=== PATIENT | male | born 1960 | race Caucasian/White ===

== ENCOUNTER 2021-07-10 13:34 | Inpatient (IN) | payer OTHER, SELFPAY ==
[2021-07-10 14:09] VITALS: BP 160/97; PULSE 87; RESP 16; TEMP 36.8; O2SAT 98; BMI 24.8
--- NOTE | 2021-07-10 14:34 | MHC.CARE ---
CARE team aware of pt. He will be evaluated by this proposal manager writer when medically cleared.
[2021-07-10 14:37] VITALS: RESP 16
[2021-07-10 15:01] LABS: COVID-19 Test Negative (Negative); IDNOW Serial# 55D5AD1C
[2021-07-10 15:19] LABS: Basophils Absolute Auto 0.1 X10*3/uL (0.0-0.2); Basophils Percent Auto 0.8 % (0-2); MANUAL DIFF FLAG SCAN; Mean Corpuscular Volume 84.4 fL (80-98); PLT CLUMP 1; SCAN SMEAR FLAG 1
[2021-07-10 15:21] LABS: Eosinophils Absolute Auto 0.1 X10*3/uL (0.0-0.4); Eosinophils Percent Auto 1.5 % (0-4); Hematocrit 39.6 % (42-52); Hemoglobin 14.2 g/dl (14.0-18.0); Imm Gran Abs Auto 0.01 X10*3/uL (0.00-0.03); Imm Gran Pct Auto 0.2 % (0.0-0.4); Lymphocytes Percent Auto 16.1 % (20-40); Mean Corpuscular HGB Conc 35.9 g/dl (31.0-36.0); Mean Corpuscular Hemoglobin 30.3 pg (27.0-33.0); Mean Platelet Volume 10.5 fL (9.4-12.4); Monocytes Absolute Auto 0.5 X10*3/uL (0.1-1.2); Monocytes Percent Auto 7.3 % (2-11); Neutrophils Absolute Auto 4.8 X10*3/uL (2.0-8.3); Neutrophils Percent Auto 74.1 % (45-73); Red Blood Count 4.69 X10*6/uL (4.60-5.80); Red Cell Distribution Width 12.4 % (11.0-16.0); White Blood Count 6.5 X10*3/uL (4.8-10.8)
[2021-07-10 15:25] LABS: INTERNATIONAL NORM RATIO 2.4 (0.9-1.1); Prothrombin Time 27.5 SEC (9.9-13.0)
[2021-07-10 15:27] LABS: Partial Thromboplastin Time 44.4 SEC (24.1-38.0)
[2021-07-10 15:37] LABS: Platelet Count 113 X10*3/uL (160-400); SLIDE REVIEW VERIFIED
[2021-07-10 15:41] LABS: Alanine Aminotransferase 15 U/L (0-40); Albumin Level 4.4 g/dL (3.5-5.0); Alkaline Phosphatase 62 U/L (39-117); Anion Gap 12 (12-20); Aspartate Amino Transferase 20 U/L (5-37); Bilirubin Direct 0.2 mg/dL (0.0-0.5); Bilirubin Total 0.7 mg/dL (0.0-1.0); Blood Urea Nitrogen 19 mg/dL (9-16); Calcium 9.8 mg/dL (8.4-10.2); Carbon Dioxide 27 mmol/L (22-29); Chloride 106 mmol/L (96-108); Creatinine Clr Calc Pharmacy 94.1; Estimated Glomerular Filt Rate > 60; Glucose Random 168 mg/dL (60-115); Potassium 4.4 mmol/L (3.3-5.1); Sodium 141 mmol/L (135-145); Total Protein 6.8 g/dL (6.5-8.0)
--- NOTE | 2021-07-10 16:08 | ECG_ITS ---
Test Reason : MED CLEARANCE Blood Pressure : / mmHG Vent. Rate : 077 BPM Atrial Rate : 077 BPM P-R Int : 168 ms QRS Dur : 096 ms QT Int : 426 ms P-R-T Axes : 049 001 064 degrees QTc Int : 482 ms Normal sinus rhythm Prolonged QT Nonspecific T wave abnormality Abnormal ECG No previous ECGs available Referred By: Jorge Arroyo Electronically Signed By:MURTAZA CRUZ
--- NOTE | 2021-07-10 16:34 | ED.PSYCH ---
HPI - Psych General Chief Complaint: Psychiatric Symptoms Stated Complaint: CRISIS Time Seen by Provider: 07/10/21 14:43 Source: patient Mode of arrival: ambulatory Limitations: no limitations History of Present Illness HPI Narrative: Patient presents to ED for suicide attempt. Patient states he has been under lot of stress lately. Patient has been depressed. Patient states within 3 months. He lost his and father failure. He also had to sell his house because he could not pay the mortgage. Patient states this morning he did not feel himself. Patient states this morning he felt like something was controlling him and he just got up with his clothes on, wrote a willl, and then went to the garage and put a noose around his neck. Patient states then the light came up in the garage and he snapped out of it and he removed the noose from his neck went over to his friend's house. Patient states noose was loose around his neck and was not tight. Patient states he was not hanging in the air. Patient states he stepped on a chair with the news on his neck but never jump rfrom the chair to hang himself. Patient denies any neck pain. Related Data Home Medications Medication Instructions Recorded Confirmed gabapentin 300 mg capsule 300 mg PO TID 07/10/21 07/10/21 metformin 500 mg tablet 500 mg PO BID 07/10/21 07/10/21 metoprolol succinate 50 mg 50 mg PO BID 07/10/21 07/10/21 tablet,extended release 24 hr sertraline 100 mg tablet 100 mg PO BID 07/10/21 07/10/21 warfarin 5 mg tablet 5 tab PO DAILY 07/10/21 07/10/21 Allergies Allergy/AdvReac Type Severity Reaction Status Date / Time No Known Allergies Allergy Verified 07/10/21 14:21 Review of Systems Review of Systems: Yes all other systems are reviewed and are negative Constitutional: Constitutional: Reports as per HPI and Reports no additional constitutional complaints Eyes: Eyes: Reports as per HPI and Reports no additional eye complaints ENT: Reports system reviewed and no additional complaints, except as documented and Reports as per HPI Cardiovascular: Cardiovascular: Reports as per HPI and Reports no additional cardiovascular complaints Respiratory: Respiratory: Reports as per HPI and Reports no additional respiratory complaints Gastrointestinal: Gastrointestinal: Reports as per HPI and Reports no additional gastrointestinal complaints Genitourinary: Genitourinary: Reports no additional male genitourinary complaints and Reports as per HPI Musculoskeletal: Musculoskeletal: Reports no additional musculoskeletal complaints and Reports as per HPI Neurologic: Reports system reviewed and no additional complaints, except as documented and Reports as per HPI Psychiatric: Psychiatric: Reports no additional psychiatric complaints, Reports as per HPI, Reports depression and Reports suicidal ideation [facility] Social History Social History Alcohol intake: never Patient Tobacco Use Status: Tobacco use Unknown Use of substances other than those prescribed or required for medical reasons: No Advance Directives: Yes Advance Directives Information Provided: Yes Advance Directives on File: No Guardian: No Physical Exam Vital Signs: Vital Signs: Last Vital Signs Temp 98.3 F 07/10/21 14:09 Pulse 87 07/10/21 14:09 Resp 16 07/10/21 14:37 BP 160/97 H 07/10/21 14:09 Pulse Ox 98 07/10/21 14:09 Body Mass Index 24.8 Const: General: cooperative, healthy appearing, comfortable, no acute distress, well developed, alert, awake and Physically active Orientation/consciousness: patient oriented x3 HENMT: Head: Yes normal to inspection, Yes No palpable skull fracture present, Yes normocephalic and Yes atraumatic Eyes: General: appearance normal, both eyes and all related structures Neck: Other: Negative for any ecchymosis, redness, or Rope chapman around neck. Neck: Yes normal visual inspection, Yes full ROM, Yes no lymphadenopathy, Yes no meningeal signs, Yes trachea midline, Yes supple and No tender Chest: Chest palpation & inspection: normal inspection of the chest and normal palpation of entire chest wall Resp: Effort & Inspection: normal respiratory effort and able to speak in complete sentences Auscultation: clear to auscultation bilaterally Cardio: Jugular venous distension: no JVD Heart sounds: S1 normal heart sound present and S2 normal heart sound present GI: Inspection: Yes normal to inspection and No abdominal wall ecchymosis Palpation (GI): Soft to palpation, not firm, nontender, no guarding and not rigid : General: No CVA tenderness and Yes no CVA tenderness Back/Spine/Pelvis: Back: no CVA tenderness, No CVA tenderness and No back tenderness Skin: General skin exam: no rashes or lesions noted and elasticity normal Neuro: General: patient oriented x3, no meningeal signs and CN's II-XI intact bilaterally Cranial nerves: Yes CN's II-XII intact bilaterally Extrem: General: Yes normal to inspection and Yes full ROM Psych: Appearance: grossly normal, well kempt and not disheveled Thought content: Suicidality present and Depressive thoughts present Course Course Course Narrative: Patient will have medical evaluation and then be evaluated by behavior Health team at work. Reevaluation(s) Reevaluation #1: Patient seen by care team consulted Eli mcgovern recommends patient be admitted for psych and patient. Labs are normal and at baseline. Time: 18:13 MDM - Psych MDM Narrative Medical decision making narrative: Depression Lab Data Result diagrams: 07/10/21 15:12 07/10/21 15:12 Labs: Lab Results 07/10/21 07/10/21 07/10/21 Range/Units 14:37 15:12 15:12 WBC 6.5 (4.8-10.8) X10*3/uL RBC 4.69 (4.60-5.80) X10*6/uL Hgb 14.2 (14.0-18.0) g/dl Hct 39.6 L (42-52) % MCV 84.4 (80-98) fL MCH 30.3 (27.0-33.0) pg MCHC 35.9 (31.0-36.0) g/dl RDW 12.4 (11.0-16.0) % Plt Count 113 L (160-400) X10*3/uL MPV 10.5 (9.4-12.4) fL Immature Gran % (Auto) 0.2 (0.0-0.4) % Neut % (Auto) 74.1 H (45-73) % Lymph % (Auto) 16.1 L (20-40) % [place] % (Auto) 7.3 (2-11) % Eos % (Auto) 1.5 (0-4) % Baso % (Auto) 0.8 (0-2) % Lymph # (Auto) 1.0 L (1.2-4.9) X10*3/uL [place] # (Auto) 0.5 (0.1-1.2) X10*3/uL Eos # (Auto) 0.1 (0.0-0.4) X10*3/uL Baso # (Auto) 0.1 (0.0-0.2) X10*3/uL Abs Immat Gran (auto) 0.01 (0.00-0.03) X10*3/uL Absolute Neuts (auto) 4.8 (2.0-8.3) X10*3/uL Absolute Nucleated RBC 0.000 (0.0-0.012) X10*3/uL Nucleated RBC % (auto) 0.0 (0.0-0.2) /100WBC Smear Tech's Comments VERIFIED PT 27.5 H (9.9-13.0) SEC INR 2.4 H (0.9-1.1) APTT 44.4 H (24.1-38.0) SEC Sodium (135-145) mmol/L Potassium (3.3-5.1) mmol/L Chloride (96-108) mmol/L Carbon Dioxide (22-29) mmol/L Anion Gap (12-20) BUN (9-16) mg/dL Creatinine (0.5-1.4) mg/dL Estim Creat Clear Calc Estimated GFR Random Glucose (60-115) mg/dL Calcium (8.4-10.2) mg/dL Total Bilirubin (0.0-1.0) mg/dL Direct Bilirubin (0.0-0.5) mg/dL AST (5-37) U/L ALT (0-40) U/L Alkaline Phosphatase (39-117) U/L Total Protein (6.5-8.0) g/dL Albumin (3.5-5.0) g/dL COVID-19 (SAMUEL) Negative (Negative) COVID-19 Clin Com See Note 07/10/21 Range/Units 15:12 WBC (4.8-10.8) X10*3/uL RBC (4.60-5.80) X10*6/uL Hgb (14.0-18.0) g/dl Hct (42-52) % MCV (80-98) fL MCH (27.0-33.0) pg MCHC (31.0-36.0) g/dl RDW (11.0-16.0) % Plt Count (160-400) X10*3/uL MPV (9.4-12.4) fL Immature Gran % (Auto) (0.0-0.4) % Neut % (Auto) (45-73) % Lymph % (Auto) (20-40) % [place] % (Auto) (2-11) % Eos % (Auto) (0-4) % Baso % (Auto) (0-2) % Lymph # (Auto) (1.2-4.9) X10*3/uL [place] # (Auto) (0.1-1.2) X10*3/uL Eos # (Auto) (0.0-0.4) X10*3/uL Baso # (Auto) (0.0-0.2) X10*3/uL Abs Immat Gran (auto) (0.00-0.03) X10*3/uL Absolute Neuts (auto) (2.0-8.3) X10*3/uL Absolute Nucleated RBC (0.0-0.012) X10*3/uL Nucleated RBC % (auto) (0.0-0.2) /100WBC Smear Tech's Comments PT (9.9-13.0) SEC INR (0.9-1.1) APTT (24.1-38.0) SEC Sodium 141 (135-145) mmol/L Potassium 4.4 (3.3-5.1) mmol/L Chloride 106 (96-108) mmol/L Carbon Dioxide 27 (22-29) mmol/L Anion Gap 12 (12-20) BUN 19 H (9-16) mg/dL Creatinine 0.90 (0.5-1.4) mg/dL Estim Creat Clear Calc 94.1 Estimated GFR > 60 Random Glucose 168 H (60-115) mg/dL Calcium 9.8 (8.4-10.2) mg/dL Total Bilirubin 0.7 (0.0-1.0) mg/dL Direct Bilirubin 0.2 (0.0-0.5) mg/dL AST 20 (5-37) U/L ALT 15 (0-40) U/L Alkaline Phosphatase 62 (39-117) U/L Total Protein 6.8 (6.5-8.0) g/dL Albumin 4.4 (3.5-5.0) g/dL COVID-19 (SAMUEL) (Negative) COVID-19 Clin Com Discharge Plan Discharge Clinical Impression: Depression Prescriptions: No Action metformin 500 mg tablet 500 mg PO BID RF: 0 metoprolol succinate 50 mg Tablet Extended Release 24 Hr 50 mg PO BID RF: 0 sertraline 100 mg tablet 100 mg PO BID RF: 0 warfarin 5 mg tablet 5 tab PO DAILY RF: 0 gabapentin 300 mg capsule 300 mg PO TID RF: 0
--- NOTE | 2021-07-10 18:39 | MHC.CARE ---
Evaluation complete. Plan is for inpt psych placement. Will be presented to M5 for possible admission.
[2021-07-10] MEDS: oxyCODONE HCl Immed Release 5 MG TABLET PO (18:44)
[2021-07-10] MEDS: Warfarin Sodium 7.5 MG TABLET PO (20:36)
[2021-07-10 20:40] VITALS: BP 139/86; PULSE 69
[2021-07-10] MEDS: Gabapentin 300 MG CAPSULE PO ×2 (20:40→20:58)
[2021-07-10] MEDS: Metoprolol Succinate ER 50 MG TAB.ER.24H PO (20:40)
[2021-07-10] MEDS: Sertraline HCL 100 MG TABLET PO (20:40)
[2021-07-10] MEDS: metFORMIN HCl 500 MG TABLET PO (20:40)
[2021-07-10 21:14] LABS: Amphetamine Screen Urine Not Detected (Not Detect); Barbiturates, Urine Not Detected (Not Detect); Benzodiazepines Screen Urine Not Detected (Not Detect); Cannabinoid Screen Urine POSITIVE (Not Detect); Cocaine Screen Urine Not Detected (Not Detect); Fentanyl, urine Not Detected (Not Detect); Opiate Screen Urine Not Detected (Not Detect); Phencyclidine Screen Urine Not Detected (Not Detect)
[2021-07-10] MEDS: Nicotine Polacrilex 2 MG GUM BUCCAL (21:35)
[2021-07-11 00:23] VITALS: BP 146/77; PULSE 58; RESP 18; TEMP 36.7; O2SAT 96
[2021-07-11] MEDS: Melatonin 3 MG TABLET 6 MG PO (00:24)
[2021-07-11 01:10] VITALS: BP 135/86; PULSE 72; RESP 18; TEMP 24.9; O2SAT 98
[2021-07-11 02:03] VITALS: BMI 23.6
[2021-07-11] MEDS: hydrOXYzine HCL 25 MG TABLET PO (03:03)
--- NOTE | 2021-07-11 04:36 | PC.ADMIT ---
Patient is alert and oriented x 4. He presents with flat affect and labile mood. Patient is admitted on a Conditional Voluntary status to M5 at 1:10am from [facility]. Patient arrives ambulatory with CARE team staff member. Patient is irritable upon arrival stating They gave me sleeping pills, than dragged me out of my warm bed and you want to put me in a dirty bed! [patient's arrival to unit was un-expected and assigned room dirty] It took sometime for patient to de-escalate before coming back to staff, apologizing, and agreeing to participate in admission process. Patient has no previous history of suicide attempts, psychiatric admissions, or providers. Patient was brought to [facility] following Suicide Attempt via hanging. Patient reports he woke up this morning 07/10/21 with no premeditation, wrote a will and left it on the kitchen counter, kissed the dog, and went into the garage. The patient describes his actions as mechanical. The patient made a noose, climbed up on a ladder with it tied around his neck. Patient reports the garage was dark during his initial actions and then the sun came through the window and he realized what he was about to do. Patient reports he removed the noose and went back into the house and had a cup of coffee and then went to a friend's house and told his friend what he had done. His friend brought him to the ED. Patient now describes this event as a cry for help. He states, I could have slipped. Patient reports several preceding factors: Isolating to self in home, the of his of 22 years three months ago, taking care of his bed bound s/p stroke for past five years, sleeping poorly, not making time for himself to engage in activities he enjoys, the of his Father-Like figure recently, worsening medical conditions including bilateral foot neuropathy and pain; patient taking unknown dose of Oxycodone recently from a friend for pain, bilateral foot edema - worsening with meals, significant weight loss, unknown skin condition with draining wounds to right lower leg after trauma to right thigh, recent increase of Prozac, and impending sale of his home. Patient reports he is scared to eat because every time I do, my feet blow up like balloons. Patient also reports he was supposed to sign the closing sale papers for his home today. Patient reports a friend recently told him they would take care of his dog if anything every happened. Patient states, I guess all these things together just made me think. I think it all has something to do with what I did. Patient does not have an outpatient therapist or psychiatrist at this time. Patient reports he is a very private person. Patient reports he would also like to establish a new PCP as he feels his current provider does not listen to him. Patient states several times throughout admission process he feels provider don't listen to him or care about him. He states, they just want to push you through. Patient is active and engaged throughout admission process, but irritable at times. Patient has been smoking about a pack a day for last year and requests a nicotine patch while here.
[2021-07-11 06:00] VITALS: BP 109/79; PULSE 80; RESP 18; TEMP 36.3; O2SAT 98
[2021-07-11 07:16] LABS: Glucose, Whole Blood 163 mg/dL (60-115)
[2021-07-11] MEDS: Gabapentin 300 MG CAPSULE PO (08:42)
[2021-07-11] MEDS: metFORMIN HCl 500 MG TABLET PO ×2 (08:43→21:11)
[2021-07-11] MEDS: Sertraline HCL 100 MG TABLET PO (08:43)
[2021-07-11 09:00] VITALS: BP 118/85; PULSE 76
[2021-07-11] MEDS: Metoprolol Succinate ER 50 MG TAB.ER.24H PO ×2 (09:00→21:11)
[2021-07-11 09:08] LABS: INTERNATIONAL NORM RATIO 2.6 (0.9-1.1); Prothrombin Time 30.2 SEC (9.9-13.0)
--- NOTE | 2021-07-11 10:34 | PC.NURSE ---
Pt signed a 3day notice 07/11/21, up on Saturday07/14/21
--- NOTE | 2021-07-11 15:50 | HO.PSYADMNOT ---
HPI Chief Complaint: Depression Sources of Information: patient interviewed, chart reviewed and crisis/core team assessment reviewed HPI Subjective Notes: [place] Warning and 3 Day Narrative: Mr. Banda is a 61 year-old male with hx of MDD who was brought to [facility] by friend after pt disclosed that earlier in the day he he had planned to hang himself in the garage. Per pt, he obtained a rope and set the ladder in his garage but later decided not to go through with plan and instead contact his long time friend. In the ED, his utox is positive for cannabinoids. This is his first inpatient psychiatric admission. On the unit, Mr. Banda signed a CV and subsequently a 3 day notice. Mr. Banda reports multiple stressors that are triggering his depression including of of 22 years 3 month ago, financial concerns as pt reports main source of income came from (pt states he did not inherent any intermediate or pension from but while she was alive she had stable source of income- unclear where this money came from). Pt reports he is not sure he will be able to afford mortgage nor health insurance. 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 Pt also reports that was very sick and required substantial assistance from him and visiting nurses. Pt reports he has been holding significant stress, depressed mood for several years but able to mask it to be able to care for his . Pt endorses feeling hopeless, tearful at times, angry about his current situation, feeling lonely, not heard by others. On the unit he continues to endorse passive suicidal ideation but denies any plan or intent. Pt reports fair sleep. He denies hx of VH/AH. He denies hx of hypomania or vicki. Pt denies hx of suicide attempts although he reports long history of depression. His PCP has been prescribing sertraline for more than 10 years ago. Most recently sertraline was increased to 200mg po daily, which pt reports is minimally helpful. Pt also reports significan chronic pain- neuropathic pain, minimally relief by gabapentin. Pt reports taking some pills from friend. He is not sure what they were. Pt educated on risks of taking other ppl medication and assuming they are opioid meds, potential for dependence if not closely monitor by health manager career. Past Psychiatric History: Inpatient: none prior OP: none Past medication trials: sertraline Past suicide attempts: only one prior to coming to unit, when pt set up ladder, cord to hang himself. 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 Neuropathic pain. DM, hyperlipedimia. EKG- Qtc slightly prolonged at 482. [facility] Family History: none Social History: Pt , for 22 years. 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 No stable source of income. Substance History: pt denies use/abuse of opioid, cocaine or alcohol but reports frequent use of cannabinoids. Trauma History: recent of Diagnostics Vital Signs (24Hr): Vital Signs - 24 hr 07/10/21 20:40 07/11/21 00:23 07/11/21 01:10 Temperature 98.1 F 76.8 F L Pulse Rate 69 58 72 Respiratory Rate 18 18 Blood Pressure 139/86 146/77 H 135/86 Pulse Oximetry 96 98 07/11/21 06:00 07/11/21 09:00 Temperature 97.4 F Pulse Rate 80 76 Respiratory Rate 18 Blood Pressure 109/79 118/85 Pulse Oximetry 98 Body Mass Index 23.6 Labs Results: 07/10/21 15:12 07/10/21 15:12 Labs: Laboratory Results - last 48 hr 07/10/21 07/10/21 07/10/21 14:37 15:12 15:12 WBC 6.5 RBC 4.69 Hgb 14.2 Hct 39.6 L MCV 84.4 MCH 30.3 MCHC 35.9 RDW 12.4 Plt Count 113 L MPV 10.5 Immature Gran % (Auto) 0.2 Neut % (Auto) 74.1 H Lymph % (Auto) 16.1 L [place] % (Auto) 7.3 Eos % (Auto) 1.5 Baso % (Auto) 0.8 Lymph # (Auto) 1.0 L [place] # (Auto) 0.5 Eos # (Auto) 0.1 Baso # (Auto) 0.1 Abs Immat Gran (auto) 0.01 Absolute Neuts (auto) 4.8 Absolute Nucleated RBC 0.000 Nucleated RBC % (auto) 0.0 Smear Tech's Comments VERIFIED PT 27.5 H INR 2.4 H APTT 44.4 H Sodium Potassium Chloride Carbon Dioxide Anion Gap BUN Creatinine Estim Creat Clear Calc Estimated GFR POC Glucose Random Glucose Calcium Total Bilirubin Direct Bilirubin AST ALT Alkaline Phosphatase Total Protein Albumin Urine Opiates Screen Urine Fentanyl Screen Ur Barbiturates Screen Ur Phencyclidine Scrn Ur Amphetamines Screen U Benzodiazepines Scrn Urine Cocaine Screen U Marijuana (THC) Screen COVID-19 (SAMUEL) Negative COVID-19 Clin Com See Note 07/10/21 07/10/21 07/11/21 15:12 20:52 07:12 WBC RBC Hgb Hct MCV MCH MCHC RDW Plt Count MPV Immature Gran % (Auto) Neut % (Auto) Lymph % (Auto) [place] % (Auto) Eos % (Auto) Baso % (Auto) Lymph # (Auto) [place] # (Auto) Eos # (Auto) Baso # (Auto) Abs Immat Gran (auto) Absolute Neuts (auto) Absolute Nucleated RBC Nucleated RBC % (auto) Smear Tech's Comments PT INR APTT Sodium 141 Potassium 4.4 Chloride 106 Carbon Dioxide 27 Anion Gap 12 BUN 19 H Creatinine 0.90 Estim Creat Clear Calc 94.1 Estimated GFR > 60 POC Glucose 163 H Random Glucose 168 H Calcium 9.8 Total Bilirubin 0.7 Direct Bilirubin 0.2 AST 20 ALT 15 Alkaline Phosphatase 62 Total Protein 6.8 Albumin 4.4 Urine Opiates Screen Not Detected Urine Fentanyl Screen Not Detected Ur Barbiturates Screen Not Detected Ur Phencyclidine Scrn Not Detected Ur Amphetamines Screen Not Detected U Benzodiazepines Scrn Not Detected Urine Cocaine Screen Not Detected U Marijuana (THC) Screen POSITIVE H COVID-19 (SAMUEL) COVID-19 Clin Com 07/11/21 08:23 WBC RBC Hgb Hct MCV MCH MCHC RDW Plt Count MPV Immature Gran % (Auto) Neut % (Auto) Lymph % (Auto) [place] % (Auto) Eos % (Auto) Baso % (Auto) Lymph # (Auto) [place] # (Auto) Eos # (Auto) Baso # (Auto) Abs Immat Gran (auto) Absolute Neuts (auto) Absolute Nucleated RBC Nucleated RBC % (auto) Smear Tech's Comments PT 30.2 H INR 2.6 H APTT Sodium Potassium Chloride Carbon Dioxide Anion Gap BUN Creatinine Estim Creat Clear Calc Estimated GFR POC Glucose Random Glucose Calcium Total Bilirubin Direct Bilirubin AST ALT Alkaline Phosphatase Total Protein Albumin Urine Opiates Screen Urine Fentanyl Screen Ur Barbiturates Screen Ur Phencyclidine Scrn Ur Amphetamines Screen U Benzodiazepines Scrn Urine Cocaine Screen U Marijuana (THC) Screen COVID-19 (SAMUEL) COVID-19 Clin Com Meds/Allergies Meds Home Medications Acetaminophen (Acetaminophen 325 Mg Tablet) 650 mg PO Q6H PRN PRN Reason: Headache/Pain Mild Scale (1-3) Last Admin: 07/12/21 09:20 Dose: 650 mg Documented by: Al Hydroxide/Mg Hydroxide (Magnesium Hydrox/Alum Hydrox 30 Ml Oral.Susp) 30 ml PO Q6H PRN PRN Reason: Heartburn/Nausea Gabapentin (Gabapentin 300 Mg Capsule) 600 mg PO TID [facility] Last Admin: 07/12/21 09:22 Dose: 600 mg Documented by: Hydroxyzine HCl (Hydroxyzine Hcl 25 Mg Tablet) 25 mg PO BEDTIME PRN PRN Reason: Anxiety Last Admin: 07/11/21 03:03 Dose: 25 mg Documented by: Magnesium Hydroxide (Milk Of Magnesia 30 Ml Oral.Susp) 30 ml PO DAILY PRN PRN Reason: Constipation Metformin HCl (Metformin Hcl 500 Mg Tablet) 500 mg PO BID [facility] Last Admin: 07/12/21 09:21 Dose: 500 mg Documented by: Metoprolol Succinate (Metoprolol Succinate Er 50 Mg Tab.Er.24h) 50 mg PO BID [facility]; Protocol Last Admin: 07/12/21 09:22 Dose: 50 mg Documented by: Nicotine (Nicotine 21 Mg Patch.Td24) 21 mg TRANSDERMA DAILY [facility] Last Admin: 07/12/21 09:25 Dose: 21 mg Documented by: Nicotine Polacrilex (Nicotine Polacrilex 2 Mg Gum) 2 mg BUCCAL Q2H PRN PRN Reason: Nicotine Cravings Sertraline HCl (Sertraline Hcl 100 Mg Tablet) 100 mg PO DAILY [facility] Last Admin: 07/12/21 09:21 Dose: 100 mg Documented by: Trazodone HCl (Trazodone Hcl 50 Mg Tablet) 50 mg PO BEDTIME PRN PRN Reason: Insomnia Venlafaxine HCl (Venlafaxine Hcl Er 37.5 Mg Cap.Er.24h) 37.5 mg PO DAILY [facility] Last Admin: 07/12/21 09:22 Dose: 37.5 mg Documented by: Warfarin Sodium (Warfarin Sodium 5 Mg Tablet) 5 mg PO Q48H [facility] Last Admin: 07/11/21 18:11 Dose: 5 mg Documented by: Warfarin Sodium (Warfarin Sodium 7.5 Mg Tablet) 7.5 mg PO Q48H [facility] Last Admin: 07/10/21 20:36 Dose: 7.5 mg Documented by: Allergies Allergies Allergy/AdvReac Type Severity Reaction Status Date / Time No Known Allergies Allergy Verified 07/10/21 14:21 Mental Status Exam Mental Status Exam Narrative: Appearance: casually groomed, fair hygiene in NAD Behavior: initially guarded and irritable, but after able to participate in meeting psychomotor: no agitation or retardation noted. Speech:clear, normal rate/rhythm/volume, spontaneous Thought process:linear Thought content:no signs of psychosis, hopeless/helpless Mood: depressed Affect: blunted, irritable at times SI:passive HI:none VH/AH:none Delusions:none Insight/judgment:poor x 2. Memory/cog: alert oriented x 3. Assessment & Plan Assessment & Plan (1) MDD (major depressive disorder), recurrent episode, moderate: Status: Acute Code(s): F33.1 - Major depressive disorder, recurrent, moderate Assessment and Plan: Mr. Banda is a 61 year-old male with hx of MDD recently exacerbated by multiple stressors including of of 22 years, financial concerns, worsening of medical conditions. Pt was admitted due to recent suicide attempt when pt set up ladder, cord and had planned to hang himself. We discussed risks, benefits and alternative treatment. He agreed to switch sertraline to effexor for depression. PLAN 1. Admit to M5 - 3 day exp. 07/14 2. cross taper sertraline to effexor- lower sertraline to 100mg po daily and start effexor 37.5mg po daily. 3. obtain collateral information 4. Coordinate aftercare plans. Patient educated on: diagnosis and medication risk/benefits Reason for continued inpatient stay Substantial Risk for: harm to self
[2021-07-11] MEDS: Nicotine 21 MG PATCH.TD24 TRANSDERMA (16:28)
[2021-07-11] MEDS: Venlafaxine HCl ER 37.5 MG CAP.ER.24H PO (16:31)
[2021-07-11] MEDS: Acetaminophen 325 MG TABLET 650 MG PO ×2 (16:32→23:46)
[2021-07-11] MEDS: Warfarin Sodium 5 MG TABLET PO (18:11)
[2021-07-11 20:45] VITALS: BP 137/74; PULSE 70; TEMP 36.3
[2021-07-11 21:11] VITALS: BP 137/74; PULSE 70
[2021-07-11] MEDS: Gabapentin 300 MG CAPSULE 600 MG PO (21:11)
[2021-07-11 21:53] LABS: Glucose, Whole Blood 226 mg/dL (60-115)
[2021-07-12 06:00] VITALS: BP 138/66; PULSE 58; TEMP 36.3; O2SAT 98
[2021-07-12 06:58] LABS: Glucose, Whole Blood 159 mg/dL (60-115)
[2021-07-12 08:29] LABS: Estimated Average Glucose 143 mg/dL; Hemoglobin A1c % 6.6 %
[2021-07-12 08:33] LABS: INTERNATIONAL NORM RATIO 3.1 (0.9-1.1); Prothrombin Time 36.2 SEC (9.9-13.0)
--- NOTE | 2021-07-12 08:41 | HO.PSYCHPN ---
Subjective Subjective Date of Service: 07/14/21 Reason For Visit: Depression Subjective Notes: 3 Day Interim History: Mr. Banda is a 61 year-old male with hx of MDD who was brought by friend after he disclosed plan to hand himself in his garage. In the ED, his utox was positive for cannabinoids. On the unit, Mr. Banda reports recent (3 months ago) of of 22 years. Pt reports that 5 years ago pt's had stoke and her health quickly deteriorated. 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 He reports he was holding significant stress as caregiver in addition to feeling disappointed by the care that his received. Pt also reports that is worried about his future and finances. 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 He reports due to chronic neuropathy and back pain he is not able to do as much work as he used to.He also reports neuropathic pain has been increasing and he is less able to tolerated it. He reports poor sleep- appears combination of restless leg and neuropathy. He denies previous suicide attempt. No hx of VH/AH. No signs of vicki or hypomania. This is his first inpatient admission. Medication Compliance: Yes Side effects from medications: No Attending Groups: Intermittent Review of Systems Acute medical concerns: No Medical Review of Systems: unchanged Review of Systems Review of Systems Appearance:thin casually groomed, fair hygiene, in NAD Behavior: initially somewhat irritable but after calm and cooperative Speech: clear, normal rate/rhythm/volume, spontaneous Psychomotor: no agitation or retardation noted TP: linear TC: no signs of psychosis, hopeless/helpless, sense of life has been unfair to him Mood: depressed Affect: blunted, tearful at times AH/VH: none Delusions: none Insight/judgment: fair x2. Memory/cog: alert, oriented x 3. not formally tested. Diagnostics Vital Signs (24Hr): Vital Signs - 24 hr 07/13/21 18:00 07/13/21 20:45 07/14/21 06:00 Temperature 97.5 F Pulse Rate 66 66 71 Respiratory Rate 16 Blood Pressure 132/82 132/82 125/89 Pulse Oximetry 97 07/14/21 08:23 Temperature Pulse Rate 70 Respiratory Rate Blood Pressure 130/69 Pulse Oximetry Body Mass Index 23.6 Labs Results: 07/10/21 15:12 07/10/21 15:12 Labs: Laboratory Results - last 48 hr 07/12/21 07/12/21 07/12/21 08:04 08:04 12:09 PT INR POC Glucose 185 H Triglycerides 250 Cholesterol 220 LDL Cholesterol, Calc 136 HDL Cholesterol 34 Vitamin B12 324 Folate 9.3 07/13/21 07/13/21 07/13/21 06:43 08:09 20:54 PT 33.0 H INR 2.8 H POC Glucose 176 H 203 H Triglycerides Cholesterol LDL Cholesterol, Calc HDL Cholesterol Vitamin B12 Folate 07/14/21 05:40 PT INR POC Glucose 153 H Triglycerides Cholesterol LDL Cholesterol, Calc HDL Cholesterol Vitamin B12 Folate Medications Medications Current Medications Acetaminophen (Acetaminophen 325 Mg Tablet) 650 mg PO Q6H PRN PRN Reason: Headache/Pain Mild Scale (1-3) Last Admin: 07/12/21 09:20 Dose: 650 mg Documented by: Al Hydroxide/Mg Hydroxide (Magnesium Hydrox/Alum Hydrox 30 Ml Oral.Susp) 30 ml PO Q6H PRN PRN Reason: Heartburn/Nausea Clonazepam (Clonazepam 0.5 Mg Tablet) 0.5 mg PO BEDTIME [facility] Last Admin: 07/13/21 20:45 Dose: 0.5 mg Documented by: Gabapentin (Gabapentin 400 Mg Capsule) 800 mg PO TID [facility] Last Admin: 07/14/21 08:24 Dose: 800 mg Documented by: Hydroxyzine HCl (Hydroxyzine Hcl 25 Mg Tablet) 25 mg PO BEDTIME PRN PRN Reason: Anxiety Last Admin: 07/11/21 03:03 Dose: 25 mg Documented by: Magnesium Hydroxide (Milk Of Magnesia 30 Ml Oral.Susp) 30 ml PO DAILY PRN PRN Reason: Constipation Metformin HCl (Metformin Hcl 500 Mg Tablet) 500 mg PO BID [facility] Last Admin: 07/14/21 08:24 Dose: 500 mg Documented by: Metoprolol Succinate (Metoprolol Succinate Er 50 Mg Tab.Er.24h) 50 mg PO BID [facility]; Protocol Last Admin: 07/14/21 08:23 Dose: 50 mg Documented by: Nicotine (Nicotine 21 Mg Patch.Td24) 21 mg TRANSDERMA DAILY [facility] Last Admin: 07/14/21 08:24 Dose: 21 mg Documented by: Nicotine Polacrilex (Nicotine Polacrilex 2 Mg Gum) 2 mg BUCCAL Q2H PRN PRN Reason: Nicotine Cravings Sertraline HCl (Sertraline Hcl 50 Mg Tablet) 50 mg PO DAILY [facility] Last Admin: 07/14/21 08:24 Dose: 50 mg Documented by: Trazodone HCl (Trazodone Hcl 50 Mg Tablet) 50 mg PO BEDTIME PRN PRN Reason: Insomnia Venlafaxine HCl (Venlafaxine Hcl Er 75 Mg Cap.Er.24h) 75 mg PO DAILY [facility] Last Admin: 07/14/21 08:23 Dose: 75 mg Documented by: Warfarin Sodium (Warfarin Sodium 5 Mg Tablet) 5 mg PO Q48H [facility] Last Admin: 07/13/21 18:29 Dose: 5 mg Documented by: Warfarin Sodium (Warfarin Sodium 7.5 Mg Tablet) 7.5 mg PO Q48H [facility] Last Admin: 07/12/21 18:13 Dose: 7.5 mg Documented by: Allergies Allergies Allergy/AdvReac Type Severity Reaction Status Date / Time No Known Allergies Allergy Verified 07/10/21 14:21 Assessment & Plan Assessment & Plan (1) MDD (major depressive disorder), recurrent episode, moderate: Status: Acute Code(s): F33.1 - Major depressive disorder, recurrent, moderate Assessment and Plan: Mr. Banda is a 61 year-old male with hx of MDD recently exacerbated by multiple stressors including of of 22 years, financial concerns, worsening of medical conditions. Pt was admitted due to recent suicide attempt when pt set up ladder, cord and had planned to hang himself. We discussed risks, benefits and alternative treatment. He agreed to switch sertraline to effexor for depression. PLAN 1. Admit to - 3 day exp. 07/14 2. cross taper sertraline to effexor- lower sertraline to 100mg po daily and start effexor 37.5mg po daily. 3. obtain collateral information 4. Coordinate aftercare plans. Greater than 50% of the session was spent on counseling and/or coordination of care Reason for contiued inpatient stay Substantial Risk for: harm to self
[2021-07-12 09:03] LABS: Cholesterol 220 mg/dL; HDL Cholesterol 34 mg/dL; LDL Cholesterol Calculated 136 mg/dl; Triglycerides 250 mg/dL
[2021-07-12] MEDS: Acetaminophen 325 MG TABLET 650 MG PO (09:20)
[2021-07-12] MEDS: metFORMIN HCl 500 MG TABLET PO ×2 (09:21→19:57)
[2021-07-12] MEDS: Sertraline HCL 100 MG TABLET PO (09:21)
[2021-07-12 09:22] VITALS: BP 128/78; PULSE 67
[2021-07-12] MEDS: Gabapentin 300 MG CAPSULE 600 MG PO ×2 (09:22→14:38)
[2021-07-12] MEDS: Venlafaxine HCl ER 37.5 MG CAP.ER.24H PO (09:22)
[2021-07-12] MEDS: Metoprolol Succinate ER 50 MG TAB.ER.24H PO ×2 (09:22→19:57)
[2021-07-12] MEDS: Nicotine 21 MG PATCH.TD24 TRANSDERMA (09:25)
[2021-07-12 09:41] VITALS: BP 128/78; PULSE 67; TEMP 30; O2SAT 98
[2021-07-12 09:56] LABS: Folate 9.3 ng/mL (> or = 4.0); Vitamin B12 324 pg/mL (200-900)
[2021-07-12 12:13] LABS: Glucose, Whole Blood 185 mg/dL (60-115)
[2021-07-12 18:00] VITALS: BP 128/66; PULSE 95; RESP 16; TEMP 36.4; O2SAT 98
[2021-07-12] MEDS: Warfarin Sodium 7.5 MG TABLET PO (18:13)
[2021-07-12 19:57] VITALS: BP 145/89; PULSE 80
[2021-07-12] MEDS: clonazePAM 0.5 MG TABLET PO (19:57)
[2021-07-12] MEDS: Gabapentin 400 MG CAPSULE 800 MG PO (20:00)
[2021-07-13 06:00] VITALS: BP 113/69; PULSE 73; RESP 16; TEMP 35.9; O2SAT 97
[2021-07-13 06:47] LABS: Glucose, Whole Blood 176 mg/dL (60-115)
[2021-07-13] MEDS: Gabapentin 400 MG CAPSULE 800 MG PO ×3 (08:27→20:45)
[2021-07-13 08:28] VITALS: BP 117/77; PULSE 74
[2021-07-13] MEDS: metFORMIN HCl 500 MG TABLET PO ×2 (08:28→20:45)
[2021-07-13] MEDS: Venlafaxine HCl ER 75 MG CAP.ER.24H PO (08:28)
[2021-07-13] MEDS: Metoprolol Succinate ER 50 MG TAB.ER.24H PO ×2 (08:28→20:45)
[2021-07-13] MEDS: Nicotine 21 MG PATCH.TD24 TRANSDERMA (08:29)
[2021-07-13] MEDS: Sertraline HCL 50 MG TABLET PO (08:29)
[2021-07-13 08:35] LABS: INTERNATIONAL NORM RATIO 2.8 (0.9-1.1)
[2021-07-13 18:00] VITALS: BP 132/82; PULSE 66
[2021-07-13] MEDS: Warfarin Sodium 5 MG TABLET PO (18:29)
[2021-07-13 20:45] VITALS: BP 132/82; PULSE 66
[2021-07-13] MEDS: clonazePAM 0.5 MG TABLET PO (20:45)
[2021-07-13 20:59] LABS: Glucose, Whole Blood 203 mg/dL (60-115)
[2021-07-14 05:43] LABS: Glucose, Whole Blood 153 mg/dL (60-115)
[2021-07-14 06:00] VITALS: BP 125/89; PULSE 71; RESP 16; TEMP 36.4; O2SAT 97
[2021-07-14 08:23] VITALS: BP 130/69; PULSE 70
[2021-07-14] MEDS: Metoprolol Succinate ER 50 MG TAB.ER.24H PO (08:23)
[2021-07-14] MEDS: Venlafaxine HCl ER 75 MG CAP.ER.24H PO (08:23)
[2021-07-14] MEDS: metFORMIN HCl 500 MG TABLET PO (08:24)
[2021-07-14] MEDS: Nicotine 21 MG PATCH.TD24 TRANSDERMA (08:24)
[2021-07-14] MEDS: Sertraline HCL 50 MG TABLET PO (08:24)
[2021-07-14] MEDS: Gabapentin 400 MG CAPSULE 800 MG PO ×2 (08:24→14:26)
[2021-07-14 08:36] LABS: INTERNATIONAL NORM RATIO 3.2 (0.9-1.1); Prothrombin Time 37.7 SEC (9.9-13.0)
--- NOTE | 2021-07-14 11:34 | PM.PSYDC ---
DS: Providers Provider Date of Service: 07/14/21 Date of admission: 07/11/21 01:37 Primary care physician: Cl Nash MD DS: Diagnosis Discharge Diagnosis (1) MDD (major depressive disorder), recurrent episode, moderate: Status: Acute DS: Medications Discharge Medications Home Medications: Home Medications Medication Instructions Recorded Confirmed metformin 500 mg tablet 500 mg PO BID 07/10/21 07/10/21 metoprolol succinate 50 mg 50 mg PO BID 07/10/21 07/10/21 tablet,extended release 24 hr warfarin 5 mg tablet 5 tab PO Q48H 07/10/21 07/10/21 warfarin 5 mg tablet 7.5 mg PO Q48H 07/10/21 07/10/21 Previous Rx's Medication Instructions Recorded clonazepam 0.5 mg tablet 0.5 mg PO BEDTIME #15 tab 07/14/21 gabapentin 400 mg capsule 800 mg PO TID #120 cap 07/14/21 nicotine 21 mg/24 hr daily 21 mg TRANSDERMAL DAILY #30 ea 07/14/21 transdermal patch venlafaxine 75 mg capsule,extended 75 mg PO DAILY #30 cap 07/14/21 release 24 hr Mental Status Exam Mental Status Exam Narrative: Appearance: casually groomed, fair hygiene in NAD Behavior: cooperative psychomotor: no agitation or retardation noted. Speech:clear, normal rate/rhythm/volume, spontaneous Thought process:linear Thought content:no signs of psychosis, future oriented, hopeful. Mood: better Affect: bright, non labile SI:none, increasingly more future oriented, hopeful. HI:none VH/AH:none Delusions:none Insight/judgment:fair x 2. Memory/cog: alert oriented x 3. grossly intact to conversational testing. Data Data Completed and Pending Completed studies during hospitalization [Text1]: 07/10/21 07/10/21 07/10/21 14:37 15:12 15:12 WBC 6.5 RBC 4.69 Hgb 14.2 Hct 39.6 L MCV 84.4 MCH 30.3 MCHC 35.9 RDW 12.4 Plt Count 113 L MPV 10.5 Immature Gran % (Auto) 0.2 Neut % (Auto) 74.1 H Lymph % (Auto) 16.1 L [place] % (Auto) 7.3 Eos % (Auto) 1.5 Baso % (Auto) 0.8 Lymph # (Auto) 1.0 L [place] # (Auto) 0.5 Eos # (Auto) 0.1 Baso # (Auto) 0.1 Abs Immat Gran (auto) 0.01 Absolute Neuts (auto) 4.8 Absolute Nucleated RBC 0.000 Nucleated RBC % (auto) 0.0 Smear Tech's Comments VERIFIED PT 27.5 H INR 2.4 H APTT 44.4 H Sodium Potassium Chloride Carbon Dioxide Anion Gap BUN Creatinine Estim Creat Clear Calc Estimated GFR POC Glucose Random Glucose Estimat Average Glucose Hemoglobin A1c % Calcium Total Bilirubin Direct Bilirubin AST ALT Alkaline Phosphatase Total Protein Albumin Triglycerides Cholesterol LDL Cholesterol, Calc HDL Cholesterol Vitamin B12 Folate Urine Opiates Screen Urine Fentanyl Screen Ur Barbiturates Screen Ur Phencyclidine Scrn Ur Amphetamines Screen U Benzodiazepines Scrn Urine Cocaine Screen U Marijuana (THC) Screen COVID-19 (SAMUEL) Negative COVID-Outbrain See Note 07/10/21 07/10/21 07/11/21 15:12 20:52 07:12 WBC RBC Hgb Hct MCV MCH MCHC RDW Plt Count MPV Immature Gran % (Auto) Neut % (Auto) Lymph % (Auto) [place] % (Auto) Eos % (Auto) Baso % (Auto) Lymph # (Auto) [place] # (Auto) Eos # (Auto) Baso # (Auto) Abs Immat Gran (auto) Absolute Neuts (auto) Absolute Nucleated RBC Nucleated RBC % (auto) Smear Tech's Comments PT INR APTT Sodium 141 Potassium 4.4 Chloride 106 Carbon Dioxide 27 Anion Gap 12 BUN 19 H Creatinine 0.90 Estim Creat Clear Calc 94.1 Estimated GFR > 60 POC Glucose 163 H Random Glucose 168 H Estimat Average Glucose Hemoglobin A1c % Calcium 9.8 Total Bilirubin 0.7 Direct Bilirubin 0.2 AST 20 ALT 15 Alkaline Phosphatase 62 Total Protein 6.8 Albumin 4.4 Triglycerides Cholesterol LDL Cholesterol, Calc HDL Cholesterol Vitamin B12 Folate Urine Opiates Screen Not Detected Urine Fentanyl Screen Not Detected Ur Barbiturates Screen Not Detected Ur Phencyclidine Scrn Not Detected Ur Amphetamines Screen Not Detected U Benzodiazepines Scrn Not Detected Urine Cocaine Screen Not Detected U Marijuana (THC) Screen POSITIVE H COVID-19 (SAMUEL) COVID-Outbrain 07/11/21 07/11/21 07/12/21 08:23 21:06 06:54 WBC RBC Hgb Hct MCV MCH MCHC RDW Plt Count MPV Immature Gran % (Auto) Neut % (Auto) Lymph % (Auto) [place] % (Auto) Eos % (Auto) Baso % (Auto) Lymph # (Auto) [place] # (Auto) Eos # (Auto) Baso # (Auto) Abs Immat Gran (auto) Absolute Neuts (auto) Absolute Nucleated RBC Nucleated RBC % (auto) Smear Tech's Comments PT 30.2 H INR 2.6 H APTT Sodium Potassium Chloride Carbon Dioxide Anion Gap BUN Creatinine Estim Creat Clear Calc Estimated GFR POC Glucose 226 H 159 H Random Glucose Estimat Average Glucose Hemoglobin A1c % Calcium Total Bilirubin Direct Bilirubin AST ALT Alkaline Phosphatase Total Protein Albumin Triglycerides Cholesterol LDL Cholesterol, Calc HDL Cholesterol Vitamin B12 Folate Urine Opiates Screen Urine Fentanyl Screen Ur Barbiturates Screen Ur Phencyclidine Scrn Ur Amphetamines Screen U Benzodiazepines Scrn Urine Cocaine Screen U Marijuana (THC) Screen COVID-19 (SAMUEL) COVID-Outbrain 07/12/21 07/12/21 07/12/21 08:04 08:04 08:04 WBC RBC Hgb Hct MCV MCH MCHC RDW Plt Count MPV Immature Gran % (Auto) Neut % (Auto) Lymph % (Auto) [place] % (Auto) Eos % (Auto) Baso % (Auto) Lymph # (Auto) [place] # (Auto) Eos # (Auto) Baso # (Auto) Abs Immat Gran (auto) Absolute Neuts (auto) Absolute Nucleated RBC Nucleated RBC % (auto) Smear Tech's Comments PT INR APTT Sodium Potassium Chloride Carbon Dioxide Anion Gap BUN Creatinine Estim Creat Clear Calc Estimated GFR POC Glucose Random Glucose Estimat Average Glucose 143 Hemoglobin A1c % 6.6 Calcium Total Bilirubin Direct Bilirubin AST ALT Alkaline Phosphatase Total Protein Albumin Triglycerides 250 Cholesterol 220 LDL Cholesterol, Calc 136 HDL Cholesterol 34 Vitamin B12 324 Folate 9.3 Urine Opiates Screen Urine Fentanyl Screen Ur Barbiturates Screen Ur Phencyclidine Scrn Ur Amphetamines Screen U Benzodiazepines Scrn Urine Cocaine Screen U Marijuana (THC) Screen COVID-19 (SAMUEL) COVID-19 [employer] 07/12/21 07/12/21 07/13/21 08:04 12:09 06:43 WBC RBC Hgb Hct MCV MCH MCHC RDW Plt Count MPV Immature Gran % (Auto) Neut % (Auto) Lymph % (Auto) [place] % (Auto) Eos % (Auto) Baso % (Auto) Lymph # (Auto) [place] # (Auto) Eos # (Auto) Baso # (Auto) Abs Immat Gran (auto) Absolute Neuts (auto) Absolute Nucleated RBC Nucleated RBC % (auto) Smear Tech's Comments PT 36.2 H INR 3.1 H APTT Sodium Potassium Chloride Carbon Dioxide Anion Gap BUN Creatinine Estim Creat Clear Calc Estimated GFR POC Glucose 185 H 176 H Random Glucose Estimat Average Glucose Hemoglobin A1c % Calcium Total Bilirubin Direct Bilirubin AST ALT Alkaline Phosphatase Total Protein Albumin Triglycerides Cholesterol LDL Cholesterol, Calc HDL Cholesterol Vitamin B12 Folate Urine Opiates Screen Urine Fentanyl Screen Ur Barbiturates Screen Ur Phencyclidine Scrn Ur Amphetamines Screen U Benzodiazepines Scrn Urine Cocaine Screen U Marijuana (THC) Screen COVID-19 (SAMUEL) Synthox 07/13/21 07/13/21 07/14/21 08:09 20:54 05:40 WBC RBC Hgb Hct MCV MCH MCHC RDW Plt Count MPV Immature Gran % (Auto) Neut % (Auto) Lymph % (Auto) [place] % (Auto) Eos % (Auto) Baso % (Auto) Lymph # (Auto) [place] # (Auto) Eos # (Auto) Baso # (Auto) Abs Immat Gran (auto) Absolute Neuts (auto) Absolute Nucleated RBC Nucleated RBC % (auto) Smear Tech's Comments PT 33.0 H INR 2.8 H APTT Sodium Potassium Chloride Carbon Dioxide Anion Gap BUN Creatinine Estim Creat Clear Calc Estimated GFR POC Glucose 203 H 153 H Random Glucose Estimat Average Glucose Hemoglobin A1c % Calcium Total Bilirubin Direct Bilirubin AST ALT Alkaline Phosphatase Total Protein Albumin Triglycerides Cholesterol LDL Cholesterol, Calc HDL Cholesterol Vitamin B12 Folate Urine Opiates Screen Urine Fentanyl Screen Ur Barbiturates Screen Ur Phencyclidine Scrn Ur Amphetamines Screen U Benzodiazepines Scrn Urine Cocaine Screen U Marijuana (THC) Screen COVID-19 (SAMUEL) [employer]Blek[employer] 07/14/21 08:09 WBC RBC Hgb Hct MCV MCH MCHC RDW Plt Count MPV Immature Gran % (Auto) Neut % (Auto) Lymph % (Auto) [place] % (Auto) Eos % (Auto) Baso % (Auto) Lymph # (Auto) [place] # (Auto) Eos # (Auto) Baso # (Auto) Abs Immat Gran (auto) Absolute Neuts (auto) Absolute Nucleated RBC Nucleated RBC % (auto) Smear Tech's Comments PT 37.7 H INR 3.2 H APTT Sodium Potassium Chloride Carbon Dioxide Anion Gap BUN Creatinine Estim Creat Clear Calc Estimated GFR POC Glucose Random Glucose Estimat Average Glucose Hemoglobin A1c % Calcium Total Bilirubin Direct Bilirubin AST ALT Alkaline Phosphatase Total Protein Albumin Triglycerides Cholesterol LDL Cholesterol, Calc HDL Cholesterol Vitamin B12 Folate Urine Opiates Screen Urine Fentanyl Screen Ur Barbiturates Screen Ur Phencyclidine Scrn Ur Amphetamines Screen U Benzodiazepines Scrn Urine Cocaine Screen U Marijuana (THC) Screen COVID-19 (SAMUEL) COVID-19 Clin Com DS: Summary Hospital Course Hospital Course: [place] Warning and 3 Day Narrative: Mr. Banda is a 61 year-old male with hx of MDD who was brought to [facility] ED by friend after pt disclosed that earlier in the day he he had planned to hang himself in the garage. Per pt, he obtained a rope and set the ladder in his garage but later decided not to go through with plan and instead contact his long time friend. In the ED, his utox is positive for cannabinoids. This is his first inpatient psychiatric admission. On the unit, Mr. Banda signed a CV and subsequently a 3 day notice. Mr. Banda reports multiple stressors that are triggering his depression including of of 22 years 3 month ago, financial concerns as pt reports main source of income came from (pt states he did not inherent any shelter or pension from but while she was alive she had stable source of income- unclear where this money came from). Pt reports he is not sure he will be able to afford mortgage nor health insurance. 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 Pt also reports that was very sick and required substantial assistance? from him and visiting nurses. Pt reports he has been holding significant stress, depressed mood for several years but able to mask it to be able to care for his . Pt endorses feeling hopeless, tearful at times, angry about his current situation, feeling lonely, not heard by others. On the unit he continues to endorse passive suicidal ideation but denies any plan or intent. Pt reports fair sleep. He denies hx of VH/AH. He denies hx of hypomania or vicki. Pt denies hx of suicide attempts although he reports long history of depression. His PCP has been prescribing sertraline for more than 10 years ago. Most recently sertraline was increased to 200mg po daily, which pt reports is minimally helpful. Pt also reports significan chronic pain- neuropathic pain, minimally relief by gabapentin. Pt reports taking some pills from friend. He is not sure what they were. Pt educated on risks of taking other ppl medication and assuming they are opioid meds, potential for dependence if not closely monitor by health care advocate. Past Psychiatric History: Inpatient: none prior OP: none Past medication trials: sertraline Past suicide attempts: only one prior to coming to unit, when pt set up ladder, cord to hang himself. 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 Neuropathic pain. DM, hyperlipedimia. EKG- Qtc slightly prolonged at 482. HOSPITAL COURSE On the unit, Mr. Banda was admitted on a CV and placed on 15 minutes checks for safety. Pt reported increasingly feeling more depressed, hopeless, passive suicidal ideation in setting of loss of of 33 years and increase neuropathic pain (mostly legs). We discussed risks, benefits and alternative treatment options. Pt has been on sertraline for several years prescribed by his PCP. Pt does note that with increase sertraline neuropathic pain did increase, which it is possible as well as worsening RLS. We discussed switching to effexor. He was gradually titrated to effexor ER 75 mg po daily. Gabapentin was increase and mostly used at bedtime. He was also started on low dose clonazepam for anxiety. His affect gradually brighten. He reported sleeping much better and not waking up at night as much. He reported neuropathic pain close to zero. He was increasingly more visible in the unit. He was social with select peers. He denied suicidal or homicidal ideation. he presented as much more future oriented and positive about his future. He agreed to continue OP psychiatric treatment. Status at Discharge Cognitive/behavioral status at discharge: Pt with brighter affect. No SI/HI. Increasingly more future oriented, hopeful. There were no signs of aggression towards self or others. Functional status at discharge: independent ambulation Overall status at discharge: patient is progressing back to baseline Time Spent with Patient Time attestation: Total time spent providing and/or coordinating discharge services: Discharge Plan Discharge Patient Disposition: Home, Self-Care Discharge Diagnosis: MDD, recurrent, moderate Referrals: Alon Wilkins (psychiatry) [Other] - 07/21/21 12:45 pm (This is a Telehealth appointment. You will be contacted on your cell phone at the time of your appointment) [facility] (therapy) [Other] - 1 Week (You have been added to the waitlist for individual therapy. You may contact the agency at the above number to inquire about your spot on the waitlist) Radha Yao ([place] [facility]) [Other] - 07/18/21 10:00 am (Radha will contact you at the scheduled date/time to discuss additional support options and services they can connect you with in the community. The above number is her direct line and you can contact her and leave a message if needed.) Cl Nash MD [Primary Care Provider] - 1 Week (appointment: 08/01 @ 2.30pm) Discharge Medications: New gabapentin 400 mg Capsule 800 mg PO TID Qty: 120 RF: 0 nicotine 21 mg/24 hr Patch 24 Hour 21 mg transdermal DAILY Qty: 30 RF: 0 venlafaxine 75 mg Capsule,Extended Release 24hr 75 mg PO DAILY Qty: 30 RF: 0 clonazepam 0.5 mg Tablet 0.5 mg PO BEDTIME Qty: 15 RF: 0 Continued metformin 500 mg tablet 500 mg PO BID RF: 0 metoprolol succinate 50 mg Tablet Extended Release 24 Hr 50 mg PO BID RF: 0 warfarin 5 mg tablet 5 tab PO Q48H RF: 0 warfarin 5 mg Tablet 7.5 mg PO Q48H RF: 0 Discontinued sertraline 100 mg tablet 100 mg PO BID RF: 0 gabapentin 300 mg capsule 300 mg PO TID RF: 0 Discharge Orders: Discharge Order (Routine); Ordered 07/14/21 Ordered By: Hali Christianson Diet: diabetic diet Activity on Discharge: As tolerated Stand Alone Forms: Patient Portal Discharge page, Community Support Care Plan Goals: 1. Maintain mood 2. No SI/HI Health Concerns: 1. Follow up with PCP- new dose of gabapentin for neuropathy Plan of Treatment: 1. Take medications as prescribed 2. Go to nearest ED or call 911 in event of emergency Assessment: Much brighter affect, less depressed, future oriented,more optimistic about future, improved mood. NO SI/HI. Discharge Date/Time: 07/14/21 15:30
== END 2021-07-14 15:30 | disposition home or self-care (01) | DRG 885 ==
LOC: HO.ED 14:22 → HO.PM5 07-11 01:39
PROVIDERS: Physician Assistant; Admitting Provider Psychiatry & Neurology Psychiatry; Emergency Provider Emergency Medicine; PCP Internal Medicine; Visit Provider Social Worker
DX: F33.1 Major depressive disorder, recurrent, moderate (principal); R45.851 Suicidal ideations; F17.210 Nicotine dependence, cigarettes, uncomplicated; Z20.822 Contact with and (suspected) exposure to COVID-19; Z71.6 Tobacco abuse counseling; Z79.01 Long term (current) use of anticoagulants; Z79.84 Long term (current) use of oral hypoglycemic drugs; Z79.899 Other long term (current) drug therapy
CPT/HCPCS: 36415; 80053; 80061; 80307; 82248; 82607; 82746; 82947; 83036; 85025; 85610; 85730; 87635; 90686; 93005; 99285

== ENCOUNTER 2024-12-30 07:59 | Outpatient (RCR) | payer OTHER, SELFPAY | END 2025-03-03 14:12 | disposition home or self-care (01) | LOC: HO.WCC 07:59 | PROVIDERS: PCP Internal Medicine; Visit Provider Surgery | DX: E11.628 Type 2 diabetes mellitus with other skin complications (principal); S41.012A Laceration without foreign body of left shoulder, initial encounter; E11.42 Type 2 diabetes mellitus with diabetic polyneuropathy; I10 Essential (primary) hypertension; F17.200 Nicotine dependence, unspecified, uncomplicated; F12.90 Cannabis use, unspecified, uncomplicated | CPT/HCPCS: 11042; 99212 ==